=== PATIENT | male | born 1990 | race Hispanic/Latino ===

== ENCOUNTER 2018-10-30 06:32 | Emergency (ER) | payer SELFPAY ==
[~2018-10-30] VITALS: Ht 180.3 cm; Wt 91.0 kg
[2018-10-30] MEDS ORDERED: XANAX0.25 MG PO (07:00)
[2018-10-30 07:12] VITALS: BP 141/93
== END 2018-10-30 07:06 | disposition home or self-care (01) | DRG 880 ==
LOC: ED 06:32
DX: F43.0 Acute stress reaction (principal); F43.22 Adjustment disorder with anxiety; R06.02 Shortness of breath